=== PATIENT | female | born 1955 | race Hispanic/Latino ===

== ENCOUNTER → 2019-11-26 | Outpatient (CLI) | payer OTHER, MEDICARE ==
[~2019-11-26] MED LIST: ASPIRIN325 MG PO; ATORVASTATIN CA40 MG PO; CALCIUM 1,0001 EACH PO; IOPAMIDOL 370 MG/ML 200 ML INFUS..BTL INJ ONE; LANTUS100 UNITS/ INJ; LISINOPRIL5 MG PO; LYRICA75 MG PO; METFORMIN HCL500 MG PO; METOPROLOL SUCC25 MG PO; NOVOLOG MI100 UNITS/ INJ; OMEPRAZOLE40 MG PO; OXYBUTYNIN CHLO10 MG PO; SERTRALINE HCL100 MG PO; SODIUM CHLORIDE 0.9% 50ML 50 ML ONE; ULTRAM 50MG50 MG PO; VITAMIN B-121000 MCG PO; VITAMIN D1000 UNI1 PO
[2019-11-26 16:50] LABS: BLOOD UREA NITROGEN 23 mg/dL (7-26); BUN/CREATININE RATIO 32 (6-25); CREATININE, SERUM 0.73 mg/dL (0.57-1.11); EST GLOMERULAR FILTRATION RATE > 60 ML/MIN (60-)
--- NOTE | 2019-11-27 09:00 | Diagnostic Imaging Report ---
EXAMINATION: CT of the abdomen and pelvis with and without contrast. TECHNIQUE: Spiral CT images of the abdomen and pelvis were performed from the lung bases to the lesser trochanters before and after the intravenous administration of 100 cc Isovue-[id number]. Coronal and sagittal reformatted images were obtained. Renal mass protocol was performed. COMPARISON: Abdominal MRI 11/07/2010 CLINICAL HISTORY:Right adrenal and right renal neoplasm DISCUSSION: ABDOMEN/PELVIS: LOWER THORAX:Lung bases are unremarkable. No pleural effusion. HEPATOBILIARY: No focal hepatic lesions. No intra-or extrahepatic biliary ductal dilation. Status post cholecystectomy. SPLEEN: No splenomegaly or focal splenic lesion. PANCREAS: No focal masses or ductal dilatation. ADRENALS: Unchanged 2.7 cm nodule in the medial limb of the right adrenal gland, with average internal attenuation -15 to -20 Hounsfield units on precontrast images, compatible with a lipid rich adenoma. No left adrenal nodule. KIDNEYS/URETERS: Multiple exophytic and parenchymal cysts of the left kidney, all of which have average internal attenuation less than 20 Hounsfield units on postcontrast images. When accounting for differences in technique, there has been no appreciable interval change in size of the partially exophytic, multiloculated cystic lesion arising from the anterior right kidney. On MRI 11/07/2010, the lesion measured approximately 8.2 cm craniocaudal x 9.1 cm AP x 7.4 cm transverse. At a similar position on the current examination, the lesion measures approximately 8.8 cm craniocaudal x 8.9 cm AP x 7.1 cm transverse. As before, there are multiple thin septations with variable degrees of calcification. No significant septal thickening or enhancement is identified on postcontrast images, and no enhancing solid nodule is appreciated. There is a punctate nonobstructing calculus in the lower pole of the left kidney, and a similar nonobstructing calculus in the lower pole of the right kidney. Excretory phase images show no filling defects within the upper collecting systems or visualized segments of the ureters. PELVIC ORGANS/BLADDER: Urinary bladder is incompletely distended and suboptimally evaluated. Uterus is anteflexed with a suspected fundal fibroid. No adnexal mass. PERITONEUM/RETROPERITONEUM: No ascites or pneumoperitoneum. LYMPH NODES: No pelvic sidewall, retroperitoneal, or mesenteric lymphadenopathy. VESSELS: Atherosclerotic calcification of the abdominal aorta, branch vessels, and iliac arterial systems, without aneurysmal dilatation. GI TRACT: The large bowel is notable for multiple diverticula along the descending and sigmoid colon, without wall thickening or inflammatory change. The appendix is normal. The stomach is collapsed with prominent rugal folds. No small bowel dilatation to suggest obstruction. BONES AND SOFT TISSUE: Large fat-containing umbilical ventral hernia. No osseous destructive lesions. Degenerative disc changes and facet arthropathy of the lumbar spine. IMPRESSION: Overall stable appearance of the previously described multiseptated cystic lesion arising from the anterior right kidney relative to the abdominal MRI performed 11/07/2010. A benign etiology such as multilocular cystic nephroma or a conglomeration of multiple adjacent benign cysts is favored given stability and lack of septal thickening, enhancement, or solid mural nodules. Lipid rich right adrenal adenoma. Punctate bilateral nonobstructing renal calculi. Incidental findings include large bowel diverticulosis without evidence of diverticulitis and atherosclerotic vascular disease. Signed by: Dr. Yunier Nina M.D. on 11/27/2019 8:57 AM
== END ==
LOC: CT 15:51
PROVIDERS: ATTEND Urology
DX: D41.01 Neoplasm of uncertain behavior of right kidney (principal); D44.10 Neoplasm of uncertain behavior of unspecified adrenal gland
CPT/HCPCS: 36415; 74178; 82565; 84520; Q9967

== ENCOUNTER → 2020-03-16 | Day surgery (SDC) | payer MEDICARE ==
[2020-03-11 12:58] LABS: BASOPHILS % 0.5 % (0.0-1.0); EOSINOPHILS # (AUTO) 0.1 (0.0-0.4); HEMATOCRIT 44.5 % (34.2-44.1); HEMOGLOBIN 14.6 g/dL (12.0-16.0); LYMPHOCYTES % 24.5 % (18.0-39.1); MEAN CORPUSCULAR HEMOGLOBIN 30.4 pg (28-32); MEAN CORPUSCULAR HGB CONC 32.8 g/dL (31-35); MEAN CORPUSCULAR VOLUME 92.7 fL (81-99); MONOCYTES # (AUTO) 0.6 (0.2-0.8); MONOCYTES % 6.7 % (4.4-11.3); NEUTROPHILS # (AUTO) 5.6 (2.1-6.9); NEUTROPHILS % 67.1 % (38.7-80.0); PLATELET COUNT 269 x10e3/uL (140-360); RED CELL DISTRIBUTION WIDTH 13.2 % (11.7-14.4)
[2020-03-11 13:12] LABS: ANION GAP 15.3 mmol/L (8-16); CREATININE, SERUM 0.95 mg/dL (0.57-1.11); POTASSIUM 4.3 mmol/L (3.5-5.1)
[~2020-03-16] MED LIST changes: +BUPIVACAINE HCL 0.5% 10ML MPF VIAL INJ ONE; +CLINDAMYCIN 300MG 50 ML IV ONE; +DEXAMETHASONE SOD PHOS INJ 4 MG/ML VIAL ONE; +GABAPENTIN300 MG PO; +INSULIN REGULAR, HUMAN 100 UNIT/1 ML 3ML VIAL ONE; -IOPAMIDOL 370 MG/ML 200 ML INFUS..BTL INJ ONE; +LEVOFLOXACIN 500MG/D5W 100ML 100 ML IV ONE; +LIDOCAINE 2%/ EPINEPHRINE 20ML MDV ONE; +LIDOCAINE HCL 2% LOCAL INJ 5 ML SDV VIAL INJ ONE; +METOCLOPRAMIDE10 MG PO; +MIRTAZAPINE7.5 MG PO; +NOVOLOG100 UNIT/1 SC; +ONDANSETRON HCL INJ 2MG/ML 2ML 2 MG/ML VIAL ONE; +PROPOFOL IV EMULSION 10 MG/ML 20 ML VIAL ONE; +SEVOFLURANE INHAL SOLN 250 ML PEN BTL ONE; -SODIUM CHLORIDE 0.9% 50ML 50 ML ONE; +SUCCINYLCHOLINE CHLORIDE 20 MG/ML 10ML VIAL ONE; +TRESIBA100 UNIT/1 SQ; +TRIBENZOR 40-51 EACH PEG; +VASCEPA1 GM PO; +VENLAFAXINE HCL50 MG PEG
[2020-03-16 11:33] VITALS: BP 128/70
== END | disposition home or self-care (01) ==
LOC: OR 05:48
PROVIDERS: ATTEND Urology
DX: N39.41 Urge incontinence (principal); N39.0 Urinary tract infection, site not specified; N20.0 Calculus of kidney; I69.354 Hemiplegia and hemiparesis following cerebral infarction affecting left non-dominant side; G51.0 Bell's palsy; E11.9 Type 2 diabetes mellitus without complications; K21.9 Gastro-esophageal reflux disease without esophagitis; K76.0 Fatty (change of) liver, not elsewhere classified; I25.10 Atherosclerotic heart disease of native coronary artery without angina pectoris; I10 Essential (primary) hypertension; E78.5 Hyperlipidemia, unspecified; F32.9 Major depressive disorder, single episode, unspecified; Z01.810 Encounter for preprocedural cardiovascular examination; Z01.812 Encounter for preprocedural laboratory examination; Z20.822 Contact with and (suspected) exposure to COVID-19; Z79.4 Long term (current) use of insulin; Z95.5 Presence of coronary angioplasty implant and graft
CPT/HCPCS: 36415 ×2; 64581; 64590; 76000; 80048; 82948; 85025; 93005; 95972; C1776; C1787; J0330; J1100; J1956; J2001 ×2; J2405; J2704; L8679; U0002; J1817